=== PATIENT | male | born 1960 | race Caucasian/White ===

== ENCOUNTER 2022-12-25 10:25 | Day surgery (SDC) | payer OTHER ==
[~2022-12-25] VITALS: Ht 172.7 cm; Wt 84.8 kg
[2022-12-25] MEDS ORDERED: SIMETHICONE 40 MG/0.6 ML ML ONE (10:33)
[2022-12-25] MEDS ORDERED: MEPERIDINE 50 MG/ML VIAL ONE (10:33)
[2022-12-25] MEDS ORDERED: MIDAZOLAM HCL 5 MG/5 ML VIAL ONE (10:33)
[2022-12-25] MEDS ORDERED: GLYCOPYRROLATE 0.2 MG/ML VIAL ONE (10:33)
[2022-12-25 13:34] VITALS: BP_SYST 130
== END 2022-12-25 12:49 | disposition home or self-care (01) ==
LOC: SDS 10:25 → SMU 10:34 → SDS 12:49
PROVIDERS: ATTEND Colon & Rectal Surgery
DX: Z12.11 Encounter for screening for malignant neoplasm of colon (principal); D12.2 Benign neoplasm of ascending colon; K57.30 Diverticulosis of large intestine without perforation or abscess without bleeding; K64.8 Other hemorrhoids; Z86.010 Personal history of colon polyps; E78.5 Hyperlipidemia, unspecified; E11.9 Type 2 diabetes mellitus without complications; Z79.899 Other long term (current) drug therapy; Z20.822 Contact with and (suspected) exposure to COVID-19
CPT/HCPCS: 45380; 82962; 88305; 99152; G0378; J2250; J2175; J3490